=== PATIENT | female | born 1935 | race African-American/Black ===

== ENCOUNTER 2018-03-22 10:20 | Outpatient (CLI) | payer MEDICARE, BC ==
--- NOTE | 2018-03-22 15:00 | MRI ---
MRI CERVICAL SPINE NONCONTRAST: Date: 03/22/18 HISTORY: 82-year-old female with cervical radiculopathy and gait abnormality. Dr. Meléndez reported the finding of multiple levels of cord compression by telephone to González nunez, nurse working with Dr. Devante Hernandez, at 1418 hours on 03/22/18. She was instructed to notify Dr. Hernandez of the findings. COMPARISON: None. FINDINGS: There is a partially empty sella turcica. No Chiari I malformation. The cervical spinal canal is diffusely small in caliber due to developmentally short pedicles. This i s exacerbated by a combination of moderately large disc-osteophyte complexes protruding into the spin al canal, and possible calcification of the posterior longitudinal ligament, at all levels from C3-4 through C6-7. Vertebral body heights are maintained. Degenerative facet changes are moderate on the l eft at C7-T1, and on the left at C3-4. Bilateral degenerative facet changes at multiple levels are mi ld at all other levels. Disc space narrowing is severe at C4-5 and C5-6, moderate at C6-7, and mild t o moderate at C4-5. The C2-3 and C7-T1 disc spaces are maintained. Findings by individual levels are as follows: C1-2: No high grade central stenosis. 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 C2-3: Moderate central stenosis almost entirely on a developmental basis. No high grade neural foraminal st enosis. C3-4: Combination of slight degenerative retrolisthesis of C3 on C4, and large, broad based, central and bi lateral paracentral disc-osteophytic bar complex (asymmetrically larger on the right than the left), encroach upon the spinal canal, together resulting in approximately 60 - 75% reduction in cross-secti onal area of spinal canal, obliterating CSF signal, and severely chronically compressing the spinal c ord. Bilateral moderate size uncinate process osteophytes result in severe bilateral neural foraminal stenosis. C4-5: Broad based disc-osteophytic bar complex and slight degenerative retrolisthesis of C4 on C5, superimp osed on the developmentally small caliber spinal canal, resulting in severe central spinal canal sten osis, chronically broadly indenting the ventral aspect of the spinal cord, but less severely than at the C3-4 level. Bilateral small uncinate process osteophytes result in severe right neural foraminal stenosis and moderate left neural foraminal stenosis. C5-6: Slight degenerative retrolisthesis of C5 on C6, plus superimposed diffuse broad based disc-osteophyti c bar complex, plus additional superimposed focal moderate size central/ left-paracentral disc hernia tion resulting in severe cord compression. Severe central spinal canal stenosis. Bilateral moderate s ized uncinate process osteophytes. Moderate right neural foraminal stenosis and severe left neural fo raminal stenosis. C6-7: Broad based disc-osteophytic bar complex mildly indents the ventral aspect of the spinal cord. Thicke tahir ligamentum flavum indents the dorsal surface of the spinal cord. Overall severe central spinal ca nal stenosis. Bilateral moderate to large uncinate process osteophytes result in severe bilateral quinton ral foraminal stenosis, left worse than right. C7-T1: Mild right neural foraminal stenosis. Moderate left neural foraminal stenosis due to left uncinate pr ocess osteophytes. No high grade central spinal canal stenosis. IMPRESSION: 1. Multilevel high grade facet osteoarthrosis (degenerative disc disease) exacerbating a development ally small caliber spinal canal, resulting in severe central spinal canal stenosis with chronic cord compressions, and severe neural foraminal stenosis, at C3-4, C4-5, C5-6, and C6-7. 2. The worst level of cord compression is C3-4; followed by C5-6 where there is a superimposed centr al/ left paracentral focal disc herniation. CODE CR. POS: YULIET
== END 2018-03-22 10:21 | disposition home or self-care (01) ==
LOC: TBSIIMAG 10:20
DX: M47.22 Other spondylosis with radiculopathy, cervical region (principal); R20.0 Anesthesia of skin; R26.89 Other abnormalities of gait and mobility; M48.02 Spinal stenosis, cervical region; M99.81 Other biomechanical lesions of cervical region; G95.20 Unspecified cord compression; M50.122 Cervical disc disorder at C5-C6 level with radiculopathy; M50.11 Cervical disc disorder with radiculopathy, high cervical region
CPT/HCPCS: 72141